=== PATIENT | female | born 1975 | race Hispanic/Latino ===

== ENCOUNTER 2023-03-19 12:29 | Observation (INO) | payer MEDICAID ==
[~2023-03-19] VITALS: Ht 149.9 cm; Wt 121.4 kg
[2023-03-19] MEDS ORDERED: MORPHINE 2 MG SYG ONE (12:46)
[2023-03-19] MEDS ORDERED: MORPHINE 4 MG SYG IVP ONE (13:00)
[2023-03-19] MEDS ORDERED: HYDRALAZINE 20MG/ML VIAL IV ONE (13:00)
[2023-03-19 13:43] LABS: HEMATOCRIT 40.7 % (36-48); MEAN CORPUSCULAR HEMOGLOBIN 29.8 pg (27.0-33.0); MEAN CORPUSCULAR HGB CONC 33.2 g/dL (32.0-36.0); MEAN CORPUSCULAR VOLUME 89.8 fL (79-99); RED BLOOD CELL COUNT(AUTO) 4.53 MIL/uL (4.00-5.50); RED CELL DISTRIBUTION WIDTH 12.7 % (11.0-15.5); WHITE BLOOD COUNT (AUTO) 5.4 K/uL (4.8-10.8)
[2023-03-19] MEDS ORDERED: MORPHINE 2 MG SYG IVP ONE (14:00)
[2023-03-19 14:07] LABS: CREATININE 0.9 mg/dL (0.5-1.5); MAGNESIUM 1.7 mg/dL (1.80-2.40); POTASSIUM 3.8 mmol/L (3.5-5.1); THYROID STIMULATING HORMONE 1.31 uIU/mL (0.36-3.74)
[2023-03-19 15:54] LABS: APPEARANCE,URINE CLOUDY (CLEAR); BILIRUBIN,URINE NEGATIVE (NEGATIVE); COLOR,URINE LIGHT-BROWN (YELLOW); GLUCOSE, URINE (UA) 200 mg/dL (NEGATIVE); KETONES,URINE 20 mg/dL (NEGATIVE); LEUKOCYTE ESTERASE ,URINE NEGATIVE Leu/uL (NEGATIVE); NITRATE,URINE NEGATIVE (NEGATIVE); OCCULT BLOOD,URINE LARGE (NEGATIVE); PROTEIN,URINE 100 mg/dL (NEGATIVE); UROBILINOGEN,URINE 0.2 mg/dL (0.2-1.0)
[2023-03-19 15:56] LABS: ADD UA MICROSCOPIC YES
[2023-03-19 15:58] LABS: RBC,URINE TNTC /HPF (0-1); UNCLASSIFIED CRYSTAL 9 /HPF (None Seen); WBC,URINE 51-100 /HPF (0-1); YEAST,URINE BUDDING RARE /HPF (None Seen)
[2023-03-19] MEDS ORDERED: IOHEXOL-350 75 ML VIAL IV ONE (16:32)
[2023-03-19] MEDS ORDERED: ACETAMINOPHEN 500 MG TABLET PO PRN (18:00)
[2023-03-19 18:03] LABS: HEMATOCRIT 40.2 % (36-48)
[2023-03-19 18:13] LABS: HEMOGLOBIN A1C 11.1 % (4.0-6.0)
[2023-03-19 18:23] LABS: INR < 0.93 (0.85-1.15); PROTHROMBIN TIME 10.2 SEC (9.6-11.6)
[2023-03-19 18:24] LABS: PARTIAL THROMBOPLASTIN TIME 29.6 SEC (26.3-35.5)
[2023-03-19 18:44] LABS: THYROID STIMULATING HORMONE 1.31 uIU/mL (0.36-3.74)
[2023-03-19] MEDS: INSULIN HUMULIN R 100 UNIT/ML 3ML SQ SCH (20:55)
[2023-03-19 21:45] VITALS: BP 162/92; PULSE 117; RESP 24; O2SAT 99
[2023-03-19 23:31] LABS: HEMATOCRIT 37.6 % (36-48)
[2023-03-20] VITALS (7 sets, daily range): BP systolic 129–159; BP diastolic 71–96; PULSE 94–118; RESP 15–20; O2SAT 97–99
[2023-03-20 06:05] LABS: HEMATOCRIT 37.9 % (36-48)
[2023-03-20] MEDS: INSULIN HUMULIN R 100 UNIT/ML 3ML SQ SCH ×4 (06:42→20:50)
[2023-03-20] MEDS: PANTOPRAZOLE 40 MG/VIAL IVP SCH (09:19)
[2023-03-20] MEDS: AMLODIPINE 5 MG TAB PO SCH (09:19)
[2023-03-20] MEDS: INSULIN GLARGINE 100 UNITS/ML 10 ML VIAL SQ SCH (09:33)
[2023-03-20 12:24] LABS: HEMATOCRIT 37.5 % (36-48)
[2023-03-20] MEDS ORDERED: MEDROXYPROGESTERONE ACET 5 MG TAB PO SCH (15:30)
[2023-03-20 18:14] LABS: HEMATOCRIT 36.9 % (36-48)
[2023-03-21] VITALS: BP 127/65; PULSE 97; RESP 20
[2023-03-21 04:00] VITALS: BP 160/75; PULSE 99; RESP 20
[2023-03-21 04:16] LABS: BASOPHILS # (AUTO) 0.01 K/uL (0.00-0.20); BASOPHILS % (AUTO) 0.3 % (0.0-5.0); EOSINOPHILS # (AUTO) 0.08 K/uL (0.00-0.70); EOSINOPHILS % (AUTO) 2.1 % (0.0-8.0); HEMATOCRIT 31.9 % (36-48); IMMATURE GRANULOCYTE ABSOLUTE 0.01 K/uL (0-1); LYMPHOCYTES # (AUTO) 1.6 K/uL (1.0-4.8); LYMPHOCYTES % (AUTO) 41.8 % (21.0-51.0); MEAN CORPUSCULAR HGB CONC 33.2 g/dL (32.0-36.0); MEAN CORPUSCULAR VOLUME 90.4 fL (79-99); MONOCYTES # (AUTO) 0.4 K/uL (0.1-1.0); MONOCYTES % (AUTO) 11.4 % (3.0-13.0); NEUTROPHILS # (AUTO) 1.7 K/uL (1.8-7.7); NEUTROPHILS % (AUTO) 44.1 % (40.0-77.0); PLATELET COUNT (AUTO) 188 K/uL (130-400); RED BLOOD CELL COUNT(AUTO) 3.53 MIL/uL (4.00-5.50); RED CELL DISTRIBUTION WIDTH 12.6 % (11.0-15.5); WHITE BLOOD COUNT (AUTO) 3.9 K/uL (4.8-10.8)
[2023-03-21 04:31] LABS: ALBUMIN 2.4 g/dL (3.5-5.0); BILIRUBIN,TOTAL 0.2 mg/dL (0.2-1.0); POTASSIUM 4.4 mmol/L (3.5-5.1); TOTAL PROTEIN, SERUM 6.1 g/dL (6.0-8.3)
[2023-03-21] MEDS: INSULIN HUMULIN R 100 UNIT/ML 3ML SQ SCH ×4 (06:07→12:59)
[2023-03-21 07:20] VITALS: BP 148/81; PULSE 95; RESP 20
[2023-03-21 07:45] VITALS: O2SAT 99
[2023-03-21] MEDS: AMLODIPINE 5 MG TAB PO SCH (08:42)
[2023-03-21] MEDS: PANTOPRAZOLE 40 MG/VIAL IVP SCH (08:42)
[2023-03-21] MEDS: INSULIN GLARGINE 100 UNITS/ML 10 ML VIAL SQ SCH (08:50)
[2023-03-21] MEDS ORDERED: MEDROXYPROGESTERONE ACET 5 MG TAB PO SCH (09:00)
[2023-03-21] MEDS ORDERED: AMLO5TAB4 PO (09:10)
[2023-03-21] MEDS ORDERED: INSLAN SQ (09:10)
[2023-03-21] MEDS ORDERED: MEDR5TAB5 PO (09:10)
[2023-03-21] MEDS ORDERED: INSU100V3 SQ (09:11)
[2023-03-21 12:00] VITALS: BP 146/92; PULSE 107; RESP 16
== END 2023-03-21 14:35 | disposition home or self-care (01) ==
LOC: EDH 12:29 → INTOOBSV 12:30 → EDHIP 12:30 → 4AH 21:09
PROVIDERS: ADMIT Internal Medicine; ATTEND Internal Medicine
DX: N93.9 Abnormal uterine and vaginal bleeding, unspecified (principal); I16.1 Hypertensive emergency; E11.65 Type 2 diabetes mellitus with hyperglycemia; E66.01 Morbid (severe) obesity due to excess calories; I95.9 Hypotension, unspecified; N85.2 Hypertrophy of uterus; R00.0 Tachycardia, unspecified; F32.A Depression, unspecified; G47.30 Sleep apnea, unspecified; I10 Essential (primary) hypertension; Z91.199 Patient's noncompliance with other medical treatment and regimen due to unspecified reason; Z90.710 Acquired absence of both cervix and uterus; Z88.0 Allergy status to penicillin; Z79.899 Other long term (current) drug therapy; Z68.43 Body mass index [BMI] 50.0-59.9, adult; Z88.5 Allergy status to narcotic agent; Z79.4 Long term (current) use of insulin
CPT/HCPCS: 96374; 96372 ×7; 99285; 83036; 84443 ×2; 83735; 84484; 80048; 83880; 84703; 85027; 85610; 85730; 85014 ×5; 85018 ×5; 86850; 86900; 86901; 87088; 86140; 81001; 36415 ×3; 71045; 71270; 76856; 93005; 84145; 96375; 82948 ×6; 96376; 80053; 85025; 93306; 93356; J2270 ×2; J0360; Q9967; G0378 ×27; S0164 ×2; J1815 ×4; C9113